=== PATIENT | male | born 1975 | race Caucasian/White ===

== ENCOUNTER 2020-02-06 11:11 | Inpatient (IN) | payer BC ==
[~2020-02-06] VITALS: Ht 175.3 cm; Wt 92.6 kg
[2020-02-06 12:36] LABS: RED CELL DISTRIBUTION WIDTH 29.6 % (11.5-14.5)
[2020-02-06 12:37] LABS: PLATELET COUNT 813 x10^3mcL (130-400)
[2020-02-06 12:51] LABS: CALCIUM 8.7 mg/dL (8.5-10.1); CARBON DIOXIDE 22.2 mmol/L (21-32); CHLORIDE SERUM 97 mmol/L (98-107); CREATININE SERUM 0.7 mg/dL (0.7-1.3); GFR1 > 60 mL/min; GLUCOSE SERUM 125 mg/dL (74-106); POTASSIUM SERUM 3.6 mmol/L (3.5-5.1); SODIUM SERUM 134 mmol/L (136-145)
[2020-02-06 12:55] LABS: ALBUMIN 1.8 g/dL (3.4-5.0); ALT/SGPT 46 U/L (16-63); AST/SGOT 149 U/L (15-37); TOTAL PROTEIN, SERUM 6.5 g/dL (6.4-8.2)
[2020-02-06 12:59] LABS: BILIRUBIN TOTAL 21.1 mg/dL (0.20-1.00)
[2020-02-06 13:02] LABS: BAND NEUTROPHIL 2 % (0-10); METAMYELOCTE 1 % (0-2); MONOCYTE 7 % (0-7); SEGMENTED NEUTROPHILS 80 % (37-75)
[2020-02-06 13:03] LABS: PLATELET MORPHOLOGY PLATELETS INCREASED; rbc morphology (normal/abnorm) ABNORMAL (NORMAL); schistocyte (helmet cell) 1+; target cell (codocyte) 2+
[2020-02-06 13:19] LABS: ALKALINE PHOSPHATASE 1669 U/L (46-116)
[2020-02-06 14:20] VITALS: BP 120/69
[2020-02-06 16:20] VITALS: BP 112/66
[2020-02-06 17:14] LABS: UA SPECIFIC GRAVITY 1.025 (1.005-1.035); microscopic required? YES; urine erythrocyte NEGATIVE (NEGATIVE)
[2020-02-06 20:45] VITALS: BP 121/73
[2020-02-07 05:46] VITALS: BP 103/56
[2020-02-07 07:42] VITALS: BP 89/46
[2020-02-07 09:33] LABS: ALT/SGPT 43 U/L (16-63); AST/SGOT 133 U/L (15-37); BILIRUBIN DIRECT 17.54 mg/dL (0.0-0.2); CALCIUM 8.6 mg/dL (8.5-10.1); CARBON DIOXIDE 22.8 mmol/L (21-32); CHLORIDE SERUM 96 mmol/L (98-107); CREATININE SERUM 0.7 mg/dL (0.7-1.3); GFR1 > 60 mL/min; GLUCOSE SERUM 95 mg/dL (74-106); POTASSIUM SERUM 4.2 mmol/L (3.5-5.1); SODIUM SERUM 130 mmol/L (136-145)
[2020-02-07 09:35] LABS: ALBUMIN 1.6 g/dL (3.4-5.0); TOTAL PROTEIN, SERUM 5.8 g/dL (6.4-8.2)
[2020-02-07 09:38] LABS: RED CELL DISTRIBUTION WIDTH 29.5 % (11.5-14.5)
[2020-02-07 10:14] LABS: ALKALINE PHOSPHATASE 1468 U/L (46-116)
[2020-02-07 11:35] VITALS: BP 112/68
[2020-02-07 12:02] VITALS: BP 112/68
[2020-02-07 12:11] LABS: BAND NEUTROPHIL 2 % (0-10); SEGMENTED NEUTROPHILS 78 % (37-75)
[2020-02-07 12:12] LABS: MONOCYTE 8 % (0-7); rbc morphology (normal/abnorm) ABNORMAL (NORMAL)
[2020-02-07 12:14] LABS: PLATELET MORPHOLOGY PLATELETS INCREASED
[2020-02-07 12:16] LABS: schistocyte (helmet cell) 1+; target cell (codocyte) 1+
[2020-02-07 12:17] LABS: PLATELET COUNT 587 x10^3mcL (130-400)
[2020-02-07 16:29] VITALS: BP 108/62
[2020-02-07 18:25] LABS: SOURCE FLUID PARACENTESIS
[2020-02-07 18:26] LABS: APPEARANCE FLUID HAZY; COLOR FLUID YELLOW; RBC FLUID 216 /cumm; WBC FLUID 172 /cumm
[2020-02-07 18:35] LABS: LYMPHOCYTE FLUID 25 %; MONOCYTE FLUID 57 %
[2020-02-07 20:50] VITALS: BP 107/59
[2020-02-08 05:45] VITALS: BP 103/56
[2020-02-08 07:16] LABS: CALCIUM 8.3 mg/dL (8.5-10.1); CARBON DIOXIDE 22.5 mmol/L (21-32); CHLORIDE SERUM 97 mmol/L (98-107); CREATININE SERUM 0.7 mg/dL (0.7-1.3); GFR1 > 60 mL/min; GLUCOSE SERUM 99 mg/dL (74-106); POTASSIUM SERUM 3.3 mmol/L (3.5-5.1); SODIUM SERUM 129 mmol/L (136-145)
[2020-02-08 08:14] VITALS: BP 134/88
[2020-02-08 09:08] LABS: PLATELET COUNT 509 x10^3mcL (130-400)
[2020-02-08 12:14] VITALS: BP 128/76
[2020-02-08 13:11] LABS: BAND NEUTROPHIL 1 % (0-10); BASOPHIL 0 % (0-2); MONOCYTE 5 % (0-7); PLATELET MORPHOLOGY PLATELETS NORMAL; SEGMENTED NEUTROPHILS 84 % (37-75)
[2020-02-08 13:14] LABS: rbc morphology (normal/abnorm) ABNORMAL (NORMAL)
[2020-02-08 16:32] VITALS: BP 120/72
[2020-02-08 20:52] VITALS: BP 109/69
[2020-02-09 06:05] VITALS: BP 111/69
[2020-02-09 07:44] VITALS: BP 100/59
[2020-02-09 08:30] LABS: CALCIUM 8.8 mg/dL (8.5-10.1); CARBON DIOXIDE 22.9 mmol/L (21-32); CHLORIDE SERUM 96 mmol/L (98-107); CREATININE SERUM 0.6 mg/dL (0.7-1.3); GFR1 > 60 mL/min; GLUCOSE SERUM 98 mg/dL (74-106); POTASSIUM SERUM 4.7 mmol/L (3.5-5.1); SODIUM SERUM 128 mmol/L (136-145)
[2020-02-09 09:54] LABS: BAND NEUTROPHIL 0 % (0-10); BASOPHIL 0 % (0-2); MONOCYTE 28 % (0-7); SEGMENTED NEUTROPHILS 63 % (37-75); rbc morphology (normal/abnorm) ABNORMAL (NORMAL)
[2020-02-09 09:55] LABS: target cell (codocyte) 2+
[2020-02-09 09:58] LABS: PLATELET COUNT 542 x10^3mcL (130-400)
[2020-02-09 09:59] LABS: PLATELET MORPHOLOGY PLATELETS INCREASED
[2020-02-09 11:25] VITALS: BP 117/72
[2020-02-09 16:09] VITALS: BP 114/68
[2020-02-09 20:55] VITALS: BP 108/64
[2020-02-10 05:40] VITALS: BP 103/55
[2020-02-10 06:46] LABS: CALCIUM 8.4 mg/dL (8.5-10.1); CARBON DIOXIDE 23.6 mmol/L (21-32); CHLORIDE SERUM 96 mmol/L (98-107); CREATININE SERUM 0.7 mg/dL (0.7-1.3); GFR1 > 60 mL/min; GLUCOSE SERUM 89 mg/dL (74-106); POTASSIUM SERUM 3.7 mmol/L (3.5-5.1); SODIUM SERUM 129 mmol/L (136-145)
[2020-02-10 07:18] LABS: PLATELET COUNT 486 x10^3mcL (130-400); RED CELL DISTRIBUTION WIDTH 29.2 % (11.5-14.5)
[2020-02-10 09:07] VITALS: BP 112/64
[2020-02-10 12:37] LABS: MONOCYTE 10 % (0-7); SEGMENTED NEUTROPHILS 80 % (37-75); rbc morphology (normal/abnorm) ABNORMAL (NORMAL)
[2020-02-10 12:38] LABS: PLATELET MORPHOLOGY PLATELETS INCREASED
[2020-02-10 14:34] VITALS: BP 103/60
[2020-02-10 20:47] VITALS: BP 104/59
[2020-02-11 05:58] VITALS: BP 106/64
[2020-02-11 08:33] LABS: PLATELET COUNT 481 x10^3mcL (130-400); RED CELL DISTRIBUTION WIDTH 28.9 % (11.5-14.5)
[2020-02-11 08:43] LABS: CALCIUM 7.7 mg/dL (8.5-10.1); CARBON DIOXIDE 21.6 mmol/L (21-32); CHLORIDE SERUM 96 mmol/L (98-107); CREATININE SERUM 0.6 mg/dL (0.7-1.3); GFR1 > 60 mL/min; GLUCOSE SERUM 95 mg/dL (74-106); MAGNESIUM 2.1 mg/dL (1.8-2.4); POTASSIUM SERUM 3.5 mmol/L (3.5-5.1); SODIUM SERUM 129 mmol/L (136-145)
[2020-02-11 08:46] VITALS: BP 96/53
[2020-02-11 10:34] LABS: rbc morphology (normal/abnorm) ABNORMAL (NORMAL)
[2020-02-11 12:16] VITALS: BP 110/63
[2020-02-11 16:16] VITALS: BP 113/60
[2020-02-11 21:57] VITALS: BP 135/76
[2020-02-12] VITALS (13 sets, daily range): BP systolic 99–117; BP diastolic 54–66; Ht 175.3 cm; Wt 92.6 kg
[2020-02-12 06:40] LABS: CALCIUM 8.5 mg/dL (8.5-10.1); CHLORIDE SERUM 101 mmol/L (98-107); CREATININE SERUM 0.7 mg/dL (0.7-1.3); GFR1 > 60 mL/min; GLUCOSE SERUM 105 mg/dL (74-106); MAGNESIUM 2.2 mg/dL (1.8-2.4); POTASSIUM SERUM 3.3 mmol/L (3.5-5.1); SODIUM SERUM 135 mmol/L (136-145)
[2020-02-12 07:24] LABS: ALBUMIN 1.6 g/dL (3.4-5.0); TOTAL PROTEIN, SERUM 5.3 g/dL (6.4-8.2)
[2020-02-12 07:25] LABS: BILIRUBIN DIRECT 21.51 mg/dL (0.0-0.2)
[2020-02-12 07:29] LABS: PLATELET COUNT 427 x10^3mcL (130-400); RED CELL DISTRIBUTION WIDTH 30.3 % (11.5-14.5)
[2020-02-12 08:53] LABS: BILIRUBIN TOTAL 24.71 mg/dL (0.20-1.00)
[2020-02-12 10:31] LABS: BAND NEUTROPHIL 3 % (0-10); BASOPHIL 0 % (0-2); MONOCYTE 7 % (0-7); PLATELET MORPHOLOGY PLATELETS INCREASED; rbc morphology (normal/abnorm) ABNORMAL (NORMAL)
[2020-02-12 10:33] LABS: schistocyte (helmet cell) 1+; target cell (codocyte) 1+
[2020-02-12 10:35] LABS: SEGMENTED NEUTROPHILS 82 % (37-75)
[2020-02-13 05:00] VITALS: BP 102/58
[2020-02-13 07:11] LABS: CALCIUM 7.9 mg/dL (8.5-10.1); CARBON DIOXIDE 22.6 mmol/L (21-32); CHLORIDE SERUM 99 mmol/L (98-107); CREATININE SERUM 0.6 mg/dL (0.7-1.3); GFR1 > 60 mL/min; GLUCOSE SERUM 82 mg/dL (74-106); POTASSIUM SERUM 3.5 mmol/L (3.5-5.1); SODIUM SERUM 134 mmol/L (136-145)
[2020-02-13 07:38] LABS: PLATELET COUNT 439 x10^3mcL (130-400); RED CELL DISTRIBUTION WIDTH 36.9 % (11.5-14.5)
[2020-02-13 08:44] VITALS: BP 97/50
[2020-02-13 10:45] LABS: BAND NEUTROPHIL 2 % (0-10); MONOCYTE 6 % (0-7); SEGMENTED NEUTROPHILS 84 % (37-75); rbc morphology (normal/abnorm) ABNORMAL (NORMAL)
[2020-02-13 10:48] LABS: ovalocyte/elliptocyte 1+
[2020-02-13 10:50] LABS: PLATELET MORPHOLOGY PLATELETS INCREASED
[2020-02-13 12:07] VITALS: BP 103/62
[2020-02-13 16:54] VITALS: BP 109/60; BP 110/67
[2020-02-13 19:48] VITALS: BP 95/54
[2020-02-14 05:14] VITALS: BP 95/54
[2020-02-14 07:13] LABS: CALCIUM 7.9 mg/dL (8.5-10.1); CARBON DIOXIDE 22.8 mmol/L (21-32); CHLORIDE SERUM 98 mmol/L (98-107); CREATININE SERUM 0.6 mg/dL (0.7-1.3); GFR1 > 60 mL/min; GLUCOSE SERUM 91 mg/dL (74-106); POTASSIUM SERUM 4.2 mmol/L (3.5-5.1); SODIUM SERUM 131 mmol/L (136-145)
[2020-02-14 07:38] LABS: PLATELET COUNT 430 x10^3mcL (130-400); RED CELL DISTRIBUTION WIDTH 36.9 % (11.5-14.5)
[2020-02-14 09:02] VITALS: BP 98/53
[2020-02-14] MEDS ORDERED: SIMETHICONE80 MG CH (09:52)
[2020-02-14] MEDS ORDERED: THI100 PO (09:52)
[2020-02-14] MEDS ORDERED: THERA TABLET400 MCG PO (09:52)
[2020-02-14] MEDS ORDERED: MIRUD PO (09:52)
[2020-02-14 10:07] LABS: BAND NEUTROPHIL 4 % (0-10); BASOPHIL 0 % (0-2); METAMYELOCTE 1 % (0-2); MONOCYTE 7 % (0-7); MYELOCYTE 2 % (0-2); SEGMENTED NEUTROPHILS 77 % (37-75)
[2020-02-14 10:09] LABS: PLATELET MORPHOLOGY PLATELETS INCREASED; rbc morphology (normal/abnorm) ABNORMAL (NORMAL)
[2020-02-14 10:11] LABS: schistocyte (helmet cell) 1+; target cell (codocyte) 1+
[2020-02-14 12:12] VITALS: BP 98/53
[2020-02-14 15:13] VITALS: BP 98/53
[2020-02-14 16:31] VITALS: BP 111/65
== END 2020-02-14 21:17 | disposition home or self-care (01) | DRG 433 ==
LOC: ED 11:11 → DU 12:54
PROVIDERS: Emergency Medicine; Internal Medicine; Internal Medicine Gastroenterology; ADMIT Internal Medicine
PROC: 0W9G3ZZ Drainage of Peritoneal Cavity, Percutaneous Approach (ICD-10-PCS; principal; 2020-02-07)
PROC: 30233K1 Transfusion of Nonautologous Frozen Plasma into Peripheral Vein, Percutaneous Approach (ICD-10-PCS; 2020-02-12 08:30)
PROC: 30233N1 Transfusion of Nonautologous Red Blood Cells into Peripheral Vein, Percutaneous Approach (ICD-10-PCS; 2020-02-12 08:30)
PROC: 0DB68ZZ Excision of Stomach, Via Natural or Artificial Opening Endoscopic (ICD-10-PCS; 2020-02-12 08:30)
PROC: 0DB68ZX Excision of Stomach, Via Natural or Artificial Opening Endoscopic, Diagnostic (ICD-10-PCS; 2020-02-12 08:30)
PROC: 0DBN8ZX Excision of Sigmoid Colon, Via Natural or Artificial Opening Endoscopic, Diagnostic (ICD-10-PCS; 2020-02-12 08:30)
DX: K70.11 Alcoholic hepatitis with ascites (principal); E87.2 Acidosis; K76.6 Portal hypertension; F10.10 Alcohol abuse, uncomplicated; K70.31 Alcoholic cirrhosis of liver with ascites; D50.9 Iron deficiency anemia, unspecified; Z20.828 Contact with and (suspected) exposure to other viral communicable diseases
CPT/HCPCS: 43235; 45378; 49083; 74181; 83880; C1729; C9113; G0378; J0696; J1200; J1610; J1940; J2001; J2250; J2310; J2543; J2916; J3010; J3430; J3480; J3490; J7030; J7050; P9016; P9059; Q0092; Q9967; U0003-CS